=== PATIENT | female | born 1985 | race Caucasian/White ===

== ENCOUNTER 2016-10-27 20:01 | Outpatient (CLI) | payer MEDICAID ==
[~2016-10-27] VITALS: Ht 170.2 cm; Wt 172.4 kg
[2016-10-27 20:45] VITALS: BP 128/66
== END 2016-10-27 21:22 | disposition home or self-care (01) ==
LOC: LDOP 20:01
PROVIDERS: ATTEND Obstetrics & Gynecology
DX: O26.893 Other specified pregnancy related conditions, third trimester (principal); R10.9 Unspecified abdominal pain; O10.913 Unspecified pre-existing hypertension complicating pregnancy, third trimester; O24.410 Gestational diabetes mellitus in pregnancy, diet controlled; O99.333 Smoking (tobacco) complicating pregnancy, third trimester; F17.200 Nicotine dependence, unspecified, uncomplicated; Z3A.29 29 weeks gestation of pregnancy
CPT/HCPCS: 59025; 81001; 87086; 99201; 99211; G0463

== ENCOUNTER 2016-11-01 18:30 | Outpatient (CLI) | payer MEDICAID ==
[~2016-11-01] VITALS: Ht 170.2 cm; Wt 123.6 kg
[2016-11-01 19:30] LABS: AMNI OBC PASS; AMNISURE NEGATIVE (NEGATIVE)
== END 2016-11-01 21:45 | disposition home or self-care (01) ==
LOC: LDOP 18:30
PROVIDERS: ATTEND Obstetrics & Gynecology
DX: O42.913 Preterm premature rupture of membranes, unspecified as to length of time between rupture and onset of labor, third trimester (principal); O26.893 Other specified pregnancy related conditions, third trimester; O10.913 Unspecified pre-existing hypertension complicating pregnancy, third trimester; O24.410 Gestational diabetes mellitus in pregnancy, diet controlled; O43.123 Velamentous insertion of umbilical cord, third trimester; O99.333 Smoking (tobacco) complicating pregnancy, third trimester; F17.200 Nicotine dependence, unspecified, uncomplicated; R25.2 Cramp and spasm; Z3A.32 32 weeks gestation of pregnancy
CPT/HCPCS: 59025; 76815; 84112; 99211; G0463

== ENCOUNTER 2016-12-01 19:18 | Observation (INO) | payer MEDICAID ==
[~2016-12-01] VITALS: Ht 170.2 cm; Wt 126.0 kg
[2016-12-01] MEDS ORDERED: ONDANSETRON 2MG/ML, 2ML ONE ×2 (19:47→21:11)
[2016-12-01] MEDS ORDERED: ONDANSETRON 2MG/ML, 2ML IVPush PRN (20:00)
[2016-12-01] MEDS ORDERED: LACTATED RINGERS 1,000 ML IV SCH (20:00)
[2016-12-01 20:15] LABS: ASPARTATE AMINO TRANSFERASE 33 U/L (15-37); BLOOD UREA NITROGEN 13 mg/dL (7-18)
[2016-12-01] MEDS ORDERED: PLEASE ENTER HEIGHT AND WEIGHT MC SCH (20:30)
== END 2016-12-01 21:50 | disposition home or self-care (01) ==
LOC: LDOP 19:18 → LDIP 19:52
PROVIDERS: ADMIT Obstetrics & Gynecology; ATTEND Obstetrics & Gynecology
DX: O21.2 Late vomiting of pregnancy (principal); O26.893 Other specified pregnancy related conditions, third trimester; R10.9 Unspecified abdominal pain; O10.913 Unspecified pre-existing hypertension complicating pregnancy, third trimester; O99.333 Smoking (tobacco) complicating pregnancy, third trimester; Z3A.34 34 weeks gestation of pregnancy
CPT/HCPCS: 36415; 59025; 80053; 81001; 85025; 87086; 96361; 96374; G0378; J2405; J7120; 96360; 99211; G0463

== ENCOUNTER 2016-12-26 08:14 | Inpatient (IN) | payer MEDICAID ==
[~2016-12-26] VITALS: Ht 170.2 cm; Wt 125.9 kg
[2016-12-26] MEDS ORDERED: LACTATED RINGERS 1,000 ML IV SCH ×2 (09:49→10:00)
[2016-12-26] MEDS ORDERED: OXYTOCIN 30U/ 0.9% NaCL 500ML 500 ML IV SCH (09:49)
[2016-12-26 09:53] VITALS: BP 121/58
[2016-12-26] MEDS ORDERED: PREN1TAB60 PO (09:53)
[2016-12-26] MEDS ORDERED: NPH,100V4 SQ (09:53)
[2016-12-26] MEDS ORDERED: METOCLOPRAMIDE 5 MG/ML, 2ML IV ONE (10:00)
[2016-12-26] MEDS ORDERED: SODIUM CITRATE/CITRIC ACID 30 ML UDC PO ONE (10:00)
[2016-12-26] MEDS ORDERED: LACTATED RINGERS 1,000 ML IVBOLUS ONE (10:00)
[2016-12-26] MEDS ORDERED: OXYcodone 5 MG/5 ML ORAL.SOL UDC PO PRN (10:30)
[2016-12-26] MEDS ORDERED: PROMETHAZINE 25 MG/ML, 1ML IV PRN (10:30)
[2016-12-26] MEDS ORDERED: hydrALAzine 20 MG/ML, 1ML IV PRN (10:30)
[2016-12-26] MEDS ORDERED: ALBUTEROL SULFATE 2.5 MG/3 ML NPPB PRN (10:30)
[2016-12-26] MEDS ORDERED: HYDROmorphone 1 MG/ML, 1ML IV PRN (10:30)
[2016-12-26] MEDS ORDERED: MEPERIDINE/PF 25MG/0.5ML IVPush PRN (10:30)
[2016-12-26] MEDS ORDERED: HYDROcodone/APAP 7.5-325MG/15ML UDC PO PRN (10:30)
[2016-12-26] MEDS ORDERED: ONDANSETRON 2MG/ML, 2ML IVPush PRN (10:30)
[2016-12-26] MEDS ORDERED: EPHEDRINE 50 MG/ML, 1ML IVPush PRN (10:30)
[2016-12-26] MEDS ORDERED: LABETALOL 5MG/ML, 20ML IV PRN (10:30)
[2016-12-26] MEDS ORDERED: FENTANYL PF 100 MCG/2ML IV PRN (10:30)
[2016-12-26] MEDS ORDERED: FENTANYL PF 100 MCG/2ML ONE (10:41)
[2016-12-26] MEDS ORDERED: OXYTOCIN 30U/ 0.9% NaCL 500ML 500 ML ONE (10:59)
[2016-12-26] MEDS ORDERED: SODIUM CITRATE/CITRIC ACID 30 ML UDC ONE (10:59)
[2016-12-26] MEDS ORDERED: METOCLOPRAMIDE 5 MG/ML, 2ML ONE ×2 (10:59→12:36)
[2016-12-26] MEDS ORDERED: NEWBORN KIT ONE (10:59)
[2016-12-26] MEDS ORDERED: OXYTOCIN 10 UNITS/ML, 1ML ONE (12:36)
[2016-12-26] MEDS ORDERED: ONDANSETRON 2MG/ML, 2ML ONE (12:36)
[2016-12-26] MEDS ORDERED: CEFAZOLIN 1,000 MG ONE (12:36)
[2016-12-26] MEDS ORDERED: KETOROLAC 30 MG/1 ML ONE (12:36)
[2016-12-26] MEDS ORDERED: DEXAMETHASONE 4 MG/ML, 1ML ONE (12:36)
[2016-12-26] MEDS: LACTATED RINGERS 1,000 ML IV SCH ×4 (13:31→23:31)
[2016-12-26] MEDS: OXYTOCIN 30U/ 0.9% NaCL 500ML 500 ML IV SCH ×2 (13:31→23:31)
[2016-12-26] MEDS ORDERED: OXYcodone IR 5MG TABLET PO PRN (14:00)
[2016-12-26] MEDS ORDERED: BISACODYL 10 MG SUPP PR PRN (14:00)
[2016-12-26] MEDS ORDERED: CALCIUM CARBONATE 500 MG TAB.CHEW PO PRN (14:00)
[2016-12-26] MEDS ORDERED: MISOPROSTOL 200 MCG TABLET PR PRN (14:00)
[2016-12-26] MEDS ORDERED: SIMETHICONE 80 MG CHEW TAB PO PRN (14:00)
[2016-12-26] MEDS ORDERED: ONDANSETRON 2MG/ML, 2ML IV PRN (14:00)
[2016-12-26] MEDS ORDERED: morphine SULFATE 10 MG/ML, 1ML IVPush PRN ×2 (14:00)
[2016-12-26] MEDS ORDERED: OXYcodone 5 MG/5 ML ORAL.SOL UDC ONE (14:37)
[2016-12-26 15:35] VITALS: BP 135/78
[2016-12-26] MEDS: ACETAMINOPHEN 325 MG TABLET PO SCH ×2 (16:33→22:39)
[2016-12-26] MEDS: KETOROLAC 30 MG/1 ML IV SCH (19:42)
[2016-12-26 20:15] VITALS: BP 117/69
[2016-12-26] MEDS: DOCUSATE 100 MG CAPSULE PO PRN (20:36)
[2016-12-26] MEDS: OXYcodone IR 5MG TABLET PO PRN (20:36)
[2016-12-27] MEDS: OXYcodone IR 5MG TABLET PO PRN ×6 (00:33→21:59)
[2016-12-27 00:34] VITALS: BP 118/68
[2016-12-27] MEDS: KETOROLAC 30 MG/1 ML IV SCH ×3 (01:41→13:13)
[2016-12-27] MEDS: ACETAMINOPHEN 325 MG TABLET PO SCH ×3 (04:52→17:21)
[2016-12-27 04:55] VITALS: BP 116/71
[2016-12-27] MEDS: LACTATED RINGERS 1,000 ML IV SCH ×3 (05:31→13:31)
[2016-12-27] MEDS ORDERED: PRENATAL VIT/IRON/FA 1 EACH TABLET ONE (07:38)
[2016-12-27] MEDS: PRENATAL VIT/IRON/FA 1 EACH TABLET PO SCH (07:47)
[2016-12-27] MEDS: DOCUSATE 100 MG CAPSULE PO PRN ×2 (07:47→21:58)
[2016-12-27 08:45] VITALS: BP 115/66
[2016-12-27] MEDS: OXYTOCIN 30U/ 0.9% NaCL 500ML 500 ML IV SCH (09:31)
[2016-12-27] MEDS ORDERED: KETOROLAC 30 MG/1 ML ONE (13:07)
[2016-12-27 20:00] VITALS: BP 112/60
[2016-12-27] MEDS: IBUPROFEN 600 MG TABLET PO SCH (21:58)
[2016-12-28] MEDS: ACETAMINOPHEN 325 MG TABLET PO SCH ×3 (00:39→13:26)
[2016-12-28] MEDS: IBUPROFEN 600 MG TABLET PO SCH ×3 (01:00→18:09)
[2016-12-28] MEDS: OXYcodone IR 5MG TABLET PO PRN ×4 (02:06→18:09)
[2016-12-28 07:30] VITALS: BP 130/71
[2016-12-28] MEDS: DOCUSATE 100 MG CAPSULE PO PRN (07:44)
[2016-12-28] MEDS: PRENATAL VIT/IRON/FA 1 EACH TABLET PO SCH (09:00)
[2016-12-28] MEDS ORDERED: OXYC-302 PO (17:24)
[2016-12-28] MEDS ORDERED: IBUP-1222 PO (17:24)
[2016-12-28] MEDS ORDERED: DOCU-30 PO (17:25)
== END 2016-12-28 19:21 | disposition home or self-care (01) | DRG 765 ==
LOC: LDIP 09:42 → 2NW 15:35
PROVIDERS: ADMIT Obstetrics & Gynecology; ATTEND Obstetrics & Gynecology
PROC: 10D00Z1 Extraction of Products of Conception, Low, Open Approach (ICD-10-PCS; principal; 2016-12-27)
DX: O24.424 Gestational diabetes mellitus in childbirth, insulin controlled (principal); O10.92 Unspecified pre-existing hypertension complicating childbirth; O40.3XX0 Polyhydramnios, third trimester, not applicable or unspecified; Z37.0 Single live birth; Z3A.38 38 weeks gestation of pregnancy; O36.63X0 Maternal care for excessive fetal growth, third trimester, not applicable or unspecified; Z88.0 Allergy status to penicillin
CPT/HCPCS: 36415; 82962; 85025; 86850; 86900; J0690; J1100; J1885; J2405; J3010; J2590; J2765; J7120

== ENCOUNTER 2017-02-11 21:04 | Emergency (ER) | payer MEDICAID ==
[~2017-02-11] VITALS: Ht 170.2 cm; Wt 113.7 kg
[~2017-02-11 21:04] MED LIST: DOCU-131 PO; IBUP-1222 PO; NPH,100V4 SQ; OXYC-302 PO; PREN1TAB60 PO
[2017-02-11] MEDS ORDERED: SULF1TAB24 PO (21:46)
[2017-02-11 21:53] LABS: PATH.CAST-FLAG NOT PRESENT; SPERM-FLAG NOT PRESENT; SRC-FLAG NOT PRESENT; XTAL-FLAG NOT PRESENT; YLC-FLAG NOT PRESENT
[2017-02-11] MEDS ORDERED: KETOROLAC 30 MG/1 ML ONE (22:01)
[2017-02-11] MEDS ORDERED: ACETAMINOPHEN 325 MG TABLET ONE (22:23)
[2017-02-11] MEDS ORDERED: MORPHINE SULFATE 4 MG/ML, 1ML ONE ×2 (22:23→23:24)
[2017-02-11] MEDS ORDERED: ONDANSETRON 2MG/ML, 2ML ONE (22:23)
[2017-02-11] MEDS: MORPHINE SULFATE 4 MG/ML, 1ML IVPush PRN ×2 (22:25→23:30)
[2017-02-11 22:29] LABS: HEMATOCRIT 37.1 % (34.6-47.8); HEMOGLOBIN 12.2 g/dL (11.7-16.4); WHITE BLOOD COUNT 11.9 x10^3/uL (3.4-10)
[2017-02-11] MEDS ORDERED: ONDANSETRON 2MG/ML, 2ML IVPush ONE (22:30)
[2017-02-11] MEDS ORDERED: ACETAMINOPHEN 325 MG TABLET PO ONE (22:30)
[2017-02-11] MEDS ORDERED: SODIUM CHLORIDE FLUSH 10ML SYR IVF ONE (22:30)
[2017-02-11] MEDS ORDERED: SODIUM CHLORIDE 0.9% 1,000ML IV ONE (22:30)
[2017-02-11] MEDS ORDERED: KETOROLAC 30 MG/1 ML IVPush ONE (22:30)
[2017-02-11 22:35] LABS: BLOOD UREA NITROGEN 21 mg/dL (7-18)
[2017-02-11 22:44] LABS: HCG UR OBC PASS
[2017-02-11] MEDS ORDERED: CEFOTETAN PMX 1GM/50ML 0 ML ONE (23:49)
[2017-02-11] MEDS ORDERED: CEFTRIAXONE PMX 1GM/50ML 50 ML ONE (23:49)
[2017-02-12] MEDS ORDERED: SODIUM CHLORIDE 0.9% 1,000ML IVBOLUS ONE
[2017-02-12] MEDS ORDERED: CEFTRIAXONE PMX 1GM/50ML 50 ML IV ONE
[2017-02-12 00:40] VITALS: BP 106/55
== END 2017-02-12 01:09 | disposition home or self-care (01) ==
LOC: ED 23:31
DX: R10.9 Unspecified abdominal pain (principal); R30.0 Dysuria; F17.200 Nicotine dependence, unspecified, uncomplicated; Z88.1 Allergy status to other antibiotic agents
CPT/HCPCS: 36415; 74176; 80048; 81001; 81025; 82040; 85025; 87077; 87086; 87186; 96361; 96365; 96375; 96376; 99285; J0696; J1885; J2405; J7030

== ENCOUNTER → 2018-12-24 | Outpatient (CLI) | payer MEDICAID ==
[~2018-12-24] MED LIST changes: -NPH,100V4 SQ; +NPH,100V5 SQ; +SULF1TAB24 PO
== END | disposition home or self-care (01) ==
LOC: CFH 12:33
PROVIDERS: ATTEND Obstetrics & Gynecology
DX: N63.0 Unspecified lump in unspecified breast (principal)
CPT/HCPCS: 77066; G0279